=== PATIENT | male | born 2000 | race Two or more races ===

== ENCOUNTER → 2023-05-30 | Emergency (ER) | payer OTHER ==
[~2023-05-30] VITALS: Ht 170.2 cm; Wt 61.2 kg
== END | disposition left against medical advice (07) ==
LOC: ER 10:35
DX: Z53.21 Procedure and treatment not carried out due to patient leaving prior to being seen by health care provider (principal)

== ENCOUNTER 2023-05-31 08:19 | Emergency (ER) | payer OTHER ==
[~2023-05-31] VITALS: Ht 162.6 cm; Wt 63.5 kg
== END 2023-05-31 09:58 | disposition home or self-care (01) ==
LOC: ER 08:19
DX: M94.0 Chondrocostal junction syndrome [Tietze] (principal)